=== PATIENT | female | born 1990 | race Caucasian/White ===

== ENCOUNTER 2016-12-12 21:16 | Emergency (ER) | payer OTHER ==
[2016-12-12] MEDS ORDERED: NS 1,000 ML IV ONE ×2 (22:29→23:26)
--- NOTE | 2016-12-12 22:29 | EDPHY ---
H & P Stated Complaint: herpes outbreak tues started pelvic pain discharge Time Seen by Provider: 12/12/16 22:17 HPI/ROS: CHIEF COMPLAINT: Abdominal pain, herpes genitalis outbreak HISTORY OF PRESENT ILLNESS: 25-year-old immunocompetent female complaining of 4 days of 1st herpes genitalis outbreak, diagnosis yesterday at [facility] started on tramadol monotherapy with no antiviral. She is continued complaints of herpes genitalis upright but is now complaining of left upper quadrant right lower quadrant abdominal pain. Positive subjective fever. Concerned about splenomegaly. Denies abdominal or splenic trauma. Bowel movements have been normal. No nausea or vomiting. No dyspnea. No chest pain. No back or flank pain. No sore throat REVIEW OF SYSTEMS: A ten point review of systems was performed and is negative with the exception of the items mentioned in the HPI PAST MEDICAL & SURGICAL HISTORY: Herpes genitalis. Bipolar disorder. Daily oral contraceptive use SOCIAL HISTORY: Nonsmoker. PHYSICAL EXAM (Prior to examination, patient consented to physical exam, hands were washed and my usual and customary physical exam procedures followed) 1) GENERAL: Well-developed, well-nourished, alert and oriented. Appears to be in no acute distress. 2) HEAD: Normocephalic, atraumatic 3) HEENT: Pupils equal, round, reactive to light bilaterally. Sclera anicteric. Nasopharynx, oropharynx, clear, no lesions. No tonsillar enlargement or exudate. Ears bilaterally with normal tympanic membranes. 4) NECK: Full range of motion, no meningeal signs. 5) LUNGS: Clear auscultation bilaterally, no wheezes, no rhonchi, no retractions. 6) HEART: Regular rate and rhythm, no murmur, no heave, no gallop. 7) ABDOMEN: Tender to palpation right lower quadrant. Tender to palpation left upper quadrant. No gross splenomegaly appreciated., 8) MUSCULOSKELETAL: Moving all extremities, no focal areas of tenderness, no obvious trauma. No peripheral edema or discoloration. 9) BACK: No CVA tenderness, no midline vertebral tenderness, no fluctuance, no step-off, no obvious trauma, no visual or palpable abnormality. 10) SKIN: No rash, no petechiae. 11) Psychiatric: Patient is oriented X 3, there is no agitation. DIFFERENTIAL DIAGNOSIS: In no particular order, including but not limited to biliary colic, cholecystitis, peptic ulcer disease, pancreatitis, acute appendicitis, and gastroenteritis. This is a partial list of diagnoses considered. These considerations are based on history, physical exam, past history and reassessment. - Personal History LMP (Females 10-55): 8-14 Days Ago Current Tetanus/Diphtheria Vaccine: Yes Current Tetanus Diphtheria and Acellular Pertussis (TDAP): Yes - Medical/Surgical History Hx Asthma: No Hx Chronic Respiratory Disease: No Hx Diabetes: No Hx Cardiac Disease: No Hx Renal Disease: No Hx Cirrhosis: No Hx Alcoholism: No Hx HIV/AIDS: No Hx Splenectomy or Spleen Trauma: No - Social History Smoking Status: Never smoked Constitutional: Initial Vital Signs Temperature (C) 37.9 C 12/12/16 21:32 Heart Rate 67 12/12/16 21:32 Respiratory Rate 18 12/12/16 21:32 Blood Pressure 111/66 12/12/16 21:32 O2 Sat (%) 96 12/12/16 21:32 O2 Delivery Mode Room Air Allergies/Adverse Reactions: amoxicillin Allergy (Verified 12/12/16 21:31) Home Medications: Medication Instructions Recorded [place] Carbonate [[place] 900 mg PO 12/12/16 Carbonate Tab 300 mg (*)] Cephalexin [Keflex] 500 mg PO QID 7 Days 12/13/16 Medical Decision Making - Diagnostics Imaging Results: Imaging Impressions Abdomen Ultrasound 12/12/16 22:27 Impression: 1. Normal sonographic appearance of the appendix. Results called to Jame Kolb PA-C, at 12:00 PM. Abdomen/Pelvis Ultrasound 12/12/16 22:27 Impression: Negative renal sonogram. Minimal fluid in Morison's pouch, likely physiologic. Results called to Jame Kolb PA-C, at 12:00 PM. ED Course/Re-evaluation: Patient re-evaluated with serial exams most recently at 12:12 a.m.. I discussed the case at this time with Dr. Abhilash Membreno. She is noted to have an elevated lipase of incompletely clear etiology. Notes that she only drinks 1 -2 drinks of alcohol per week. She has normal transaminase. She is febrile however. Plan will be CT imaging and re-evaluation. At this time she is sleeping resting comfortably. 1:04 a.m.: Re-evaluation. She is resting comfortably. Discussed her diagnostic results. Specific etiology of her elevated lipase is not completely clear at this time. However, her pain is controlled and she is tolerating oral intake with no nausea or vomiting. I have recommended non emergent follow up with Gastroenterology for this. I do not think that hospitalization is currently indicated at this time. She is also noted to have bacteriuria and pyuria. Urine is cultured and she is started on Keflex. Recommend she return to the emergency department immediately if she develops inability to tolerate oral intake or any other symptoms that concern her. She feels comfortable being discharged. All questions and concerns addressed by myself. - Data Points Laboratory Results: Laboratory Results 12/12/16 20:22 12/12/16 20:12/12/16 12/12/16 12/12/16 22:20 20:22 20:22 WBC 4.37 10^3/uL 10^3/uL (3.80-9.50) RBC 3.82 10^6/uL L 10^6/uL (4.18-5.33) Hgb 13.0 g/dL g/dL (12.6-16.3) Hct 38.3 % % (38.0-47.0) MCV 100.3 fL H fL (81.5-99.8) MCH 34.0 pg pg (27.9-34.1) MCHC 33.9 g/dL g/dL (32.4-36.7) RDW 12.3 % % (11.5-15.2) Plt Count 154 10^3/uL 10^3/uL (150-400) MPV 9.7 fL fL (8.7-11.7) Neut % (Auto) 62.7 % % (39.3-74.2) Lymph % (Auto) 27.2 % % (15.0-45.0) [place] % (Auto) 9.2 % % (4.5-13.0) Eos % (Auto) 0.2 % L % (0.6-7.6) Baso % (Auto) 0.5 % % (0.3-1.7) Nucleat RBC Rel Count 0.0 % % (0.0-0.2) Absolute Neuts (auto) 2.74 10^3/uL 10^3/uL (1.70-6.50) Absolute Lymphs (auto) 1.19 10^3/uL 10^3/uL (1.00-3.00) Absolute Monos (auto) 0.40 10^3/uL 10^3/uL (0.30-0.80) Absolute Eos (auto) 0.01 10^3/uL L 10^3/uL (0.03-0.40) Absolute Basos (auto) 0.02 10^3/uL 10^3/uL (0.02-0.10) Absolute Nucleated RBC 0.00 10^3/uL 10^3/uL (0-0.01) Immature Gran % 0.2 % % (0.0-1.1) Immature Gran # 0.01 10^3/uL 10^3/uL (0.00-0.10) Sodium Potassium Chloride Carbon Dioxide Anion Gap BUN Creatinine Estimated GFR Glucose Calcium Total Bilirubin Conjugated Bilirubin Unconjugated Bilirubin AST ALT Alkaline Phosphatase Total Protein Albumin Lipase Beta HCG, Qual NEGATIVE Urine Color PALE YELLOW Urine Appearance CLEAR Urine pH 7.0 (5.0-7.5) Ur Specific [place] 1.003 (1.002-1.030) Urine Protein NEGATIVE (NEGATIVE) Urine Ketones NEGATIVE (NEGATIVE) Urine Blood 3+ H (NEGATIVE) Urine Nitrate NEGATIVE (NEGATIVE) Urine Bilirubin NEGATIVE (NEGATIVE) Urine Urobilinogen NEGATIVE EU EU (0.2-1.0) Ur Leukocyte Esterase TRACE H (NEGATIVE) Urine RBC 1-3 /hpf /hpf (0-3) Urine WBC 5-10 /hpf H /hpf (0-3) Ur Epithelial Cells TRACE /lpf /lpf (NONE-1+) Urine Bacteria TRACE /hpf H /hpf (NONE SEEN) Urine Glucose NEGATIVE (NEGATIVE) 12/12/16 20:22 WBC RBC Hgb Hct MCV MCH MCHC RDW Plt Count MPV Neut % (Auto) Lymph % (Auto) [place] % (Auto) Eos % (Auto) Baso % (Auto) Nucleat RBC Rel Count Absolute Neuts (auto) Absolute Lymphs (auto) Absolute Monos (auto) Absolute Eos (auto) Absolute Basos (auto) Absolute Nucleated RBC Immature Gran % Immature Gran # Sodium 140 mEq/L mEq/L (134-144) Potassium 4.1 mEq/L mEq/L (3.5-5.2) Chloride 104 mEq/L mEq/L (97-110) Carbon Dioxide 25 mEq/l mEq/l (22-31) Anion Gap 11 mEq/L mEq/L (8-16) BUN 11 mg/dL mg/dL (7-23) Creatinine 0.9 mg/dL mg/dL (0.6-1.0) Estimated GFR > 60 Glucose 94 mg/dL mg/dL (70-100) Calcium 9.5 mg/dL mg/dL (8.5-10.4) Total Bilirubin 0.4 mg/dL mg/dL (0.1-1.4) Conjugated Bilirubin 0.1 mg/dL mg/dL (0.0-0.5) Unconjugated Bilirubin 0.3 mg/dL mg/dL (0.0-1.1) AST 42 IU/L IU/L (14-46) ALT 34 IU/L IU/L (9-52) Alkaline Phosphatase 38 IU/L IU/L (38-126) Total Protein 7.0 g/dL g/dL (6.3-8.2) Albumin 4.2 g/dL g/dL (3.5-5.0) Lipase 559.0 IU/L H IU/L (23-300) Beta HCG, Qual Urine Color Urine Appearance Urine pH Ur Specific [place] Urine Protein Urine Ketones Urine Blood Urine Nitrate Urine Bilirubin Urine Urobilinogen Ur Leukocyte Esterase Urine RBC Urine WBC Ur Epithelial Cells Urine Bacteria Urine Glucose Medications Given: Discontinued Medications Cephalexin (Keflex 500 Mg Prepack#4) 1 btl TAKEHOME EDNOW ONE PRN Reason: Protocol Stop: 12/13/16 01:03 Last Admin: 12/13/16 01:16 Dose: 1 btl Sodium Chloride (Ns) 1,000 mls @ 0 mls/hr IV ONCE ONE; Wide Open PRN Reason: Protocol Stop: 12/12/16 22:30 Last Admin: 12/12/16 22:33 Dose: 1,000 mls Sodium Chloride (Ns) 1,000 mls @ 0 mls/hr IV ONCE ONE PRN Reason: Wide Open Stop: 12/12/16 23:27 Last Admin: 12/12/16 23:29 Dose: 1,000 mls Departure - Departure Disposition: Home, Routine, Self-Care Clinical Impression: Elevated lipase Urinary tract infection Qualifiers: Urinary tract infection type: acute cystitis Hematuria presence: with hematuria Qualified Code(s): N30.01 - Acute cystitis with hematuria Condition: Good Instructions: Pancreatitis (ED), Urinary Tract Infection in Women (ED), How to Care for Your Suprapubic Catheter (ED) Additional Instructions: Return to the emergency department immediately if you develop new or worsening abdominal pain if you develop inability to tolerate oral intake such as food or fluid, if you developed worsening abdominal pain or any other symptoms that concern you. Referrals: Domenic Toledo MD [Medical Doctor] - 2-3 days, call for appt. (Dr. Domenic Toledo is a public affairs manager) Heaven Herzog MD [Medical Doctor] - 12/15/16 (Dr. Heaven Herzog is a primary care provider. Recommend you establish primary care.) Prescriptions: Cephalexin [Keflex] 500 mg PO QID 7 Days
[2016-12-12 22:35] LABS: % IMMATURE GRANULYOCYTES 0.2 % (0.0-1.1); ABSOLUTE IMMATURE GRANULOCYTES 0.01 10^3/uL (0.00-0.10); ADD DIFF? NO; ADD MORPH? NO; ADD SCAN? NO; ATYPICAL LYMPHOCYTE FLAG 90 (0-99); FRAGMENT RBC FLAG 0 (0-99); HEMATOCRIT 38.3 % (38.0-47.0); LEFT SHIFT FLG 0 (0-99); LIPEMIA HEMOLYSIS FLAG 90 (0-99); MEAN CELL HEMOGLOBIN CONCENTR. 33.9 g/dL (32.4-36.7); MEAN CELL VOLUME 100.3 fL (81.5-99.8); MEAN PLATELET VOLUME 9.7 fL (8.7-11.7); PLATELET CLUMPS FLAG 20 (0-99); PLATELET COUNT 154 10^3/uL (150-400); RED BLOOD CELL COUNT 3.82 10^6/uL (4.18-5.33); RED CELL DISTRIBUTION WIDTH 12.3 % (11.5-15.2)
[2016-12-12 22:42] LABS: COLOR PALE YELLOW; LEUKOCYTE ESTERASE,URINE TRACE (NEGATIVE); NITRITE,URINE NEGATIVE (NEGATIVE)
[2016-12-12 22:55] LABS: ALANINE AMINOTRANSFERASE 34 IU/L (9-52); ALBUMIN 4.2 g/dL (3.5-5.0); ALKALINE PHOSPHATASE 38 IU/L (38-126); ANION GAP 11 mEq/L (8-16); ASPARTATE AMINOTRANSFERASE 42 IU/L (14-46); BILIRUBIN,TOTAL 0.4 mg/dL (0.1-1.4); BILIRUBIN-CONJUGATED 0.1 mg/dL (0.0-0.5); BILIRUBIN-UNCONJUGATED 0.3 mg/dL (0.0-1.1); CALCIUM 9.5 mg/dL (8.5-10.4); CARBON DIOXIDE 25 mEq/l (22-31); CHLORIDE 104 mEq/L (97-110); CREATININE 0.9 mg/dL (0.6-1.0); GLOMERULAR FILTRATION RATE > 60; GLUCOSE 94 mg/dL (70-100); POTASSIUM 4.1 mEq/L (3.5-5.2); SODIUM 140 mEq/L (134-144)
[2016-12-12 22:59] LABS: BACTERIA TRACE /hpf (NONE SEEN)
[2016-12-12 23:30] VITALS: RESP 16
[2016-12-13] MEDS ORDERED: IOPAMIDOL (ISOVUE-300) 100 ML BTL ONE (00:16)
[2016-12-13] MEDS ORDERED: CEPHALEXIN 500MG PREPACK#4 BTL TAKEHOME ONE (01:02)
[2016-12-13 01:36] VITALS: BP 118/94; PULSE 75; TEMP 102.9; O2SAT 98
== END 2016-12-13 01:37 | disposition home or self-care (01) ==
DX: N30.01 Acute cystitis with hematuria (principal); R74.8 Abnormal levels of other serum enzymes; B96.89 Other specified bacterial agents as the cause of diseases classified elsewhere; E86.9 Volume depletion, unspecified
CPT/HCPCS: Q9967

== ENCOUNTER 2017-04-14 15:44 | Inpatient (IN) | payer OTHER ==
--- NOTE | 2017-04-14 15:40 | EDPHY ---
H & P Constitutional: Initial Vital Signs Temperature (C) 36.6 C 04/14/17 16:10 Heart Rate 67 04/14/17 16:10 Respiratory Rate 16 04/14/17 16:10 Blood Pressure 111/71 04/14/17 16:10 O2 Sat (%) 94 04/14/17 16:10 O2 Delivery Mode Room Air Allergies/Adverse Reactions: amoxicillin Allergy (Verified 04/14/17 16:09) Home Medications: Medication Instructions Recorded [place] Carbonate [[place] 900 mg PO 12/12/16 Carbonate Tab 300 mg (*)] Medical Decision Making ED Course/Re-evaluation: CHIEF COMPLAINT: Psychiatric evaluation, M1 HISTORY OF PRESENT ILLNESS: The patient is a 26 y/o female with a long history of severe depression and diagnosis of bipolar I a few years ago who arrives on an M1 hold for suicidal ideation. She has been working with her psychiatrist to determine the best medication therapy and has been on [place] for 5 months. She started feeling "low" 2 weeks ago and was not sure if the [place] was helping. She describes some auditory and visual hallucinations and difficulty sleeping. She felt "desperate to change something" and stopped her [place] 3 days ago without involvement of her doctor. Yesterday morning she had a "nervous breakdown" and developed worsening suicidal thoughts and had self-harm behaviors. She cut her right wrist and says it "grounds me in an odd way." She felt like she returned to a "calmer place" today, but her psychiatrist was out- of-town to discuss everything with so she went [facility], which then sent her here on an M1 for suicidal ideation. She admits to these thoughts, but says they feel less intense today and she denies any type of plan. REVIEW OF SYSTEMS: A 10 point review of systems was performed and is negative with the exception of the elements mentioned in the history of present illness. PHYSICAL EXAM: General Appearance: Alert, well hydrated, appropriate, and non-toxic appearing. Head: Atraumatic without scalp tenderness or obvious injury Eyes: Pupils equal, round, reactive to light and accommodation, EOMI, no trauma , no injection. Nose: Atraumatic, no rhinorrhea, clear. Throat: Mucus membranes moist. Neck: Supple Respiratory: No retractions, no distress, no wheezes, and no accessory muscle use. Lungs are clear to auscultation bilaterally. Cardiovascular: Regular rate and rhythm, no murmurs, rubs, or gallops. Good capillary refill all extremities. Gastrointestinal: Abdomen is soft, nontender, non-distended, no masses, no rebound, no guarding, no peritoneal signs. Musculoskeletal: Normal active ROM of all extremities, atraumatic. Neurological: Alert, appropriate, and interactive. The patient has non-focal cranial nerves, motor, sensory, and cerebellar exam. Skin: No rashes, good turgor, no nodules on palpation. Superficial laceration right wrist. Past medical history: Severe depression, bipolar I Past surgical history: Noncontributory Family history: Noncontributory Social history: Boyfriend at bedside. Lives in [place]. DIFFERENTIAL DIAGNOSIS: The differential diagnosis for the patient's depression included but was not limited to functional and major depression, situational depression, medication side effect, drugs, and alcohol abuse. MEDICAL DECISION MAKING: Patient is in no acute distress and is hemodynamically stable. We are awaiting psychiatric team's evaluation. Patient has known history of psychiatric disorders and is here for evaluation. - Data Points Laboratory Results: Laboratory Results 04/14/17 16:00 04/14/17 16:00 04/14/17 04/14/17 04/14/17 16:00 16:00 16:00 WBC RBC Hgb Hct MCV MCH MCHC RDW Plt Count MPV Neut % (Auto) Lymph % (Auto) [place] % (Auto) Eos % (Auto) Baso % (Auto) Nucleat RBC Rel Count Absolute Neuts (auto) Absolute Lymphs (auto) Absolute Monos (auto) Absolute Eos (auto) Absolute Basos (auto) Absolute Nucleated RBC Immature Gran % Immature Gran # Sodium Potassium Chloride Carbon Dioxide Anion Gap BUN Creatinine Estimated GFR Glucose Calcium Beta HCG, Qual NEGATIVE Salicylates Urine Opiates Screen NEGATIVE (NEGATIVE) Acetaminophen Urine Barbiturates NEGATIVE (NEGATIVE) Ur Phencyclidine Scrn NEGATIVE (NEGATIVE) Ur Amphetamine Screen NEGATIVE (NEGATIVE) U Benzodiazepines Scrn NEGATIVE (NEGATIVE) [place] 0.2 mEq/L L mEq/L (0.6-1.2) Urine Cocaine Screen NEGATIVE (NEGATIVE) U Marijuana (THC) Screen NEGATIVE (NEGATIVE) Ethyl Alcohol 04/14/17 04/14/17 16:00 16:00 WBC 6.28 10^3/uL 10^3/uL (3.80-9.50) RBC 4.53 10^6/uL 10^6/uL (4.18-5.33) Hgb 15.5 g/dL g/dL (12.6-16.3) Hct 43.6 % % (38.0-47.0) MCV 96.2 fL fL (81.5-99.8) MCH 34.2 pg H pg (27.9-34.1) MCHC 35.6 g/dL g/dL (32.4-36.7) RDW 11.9 % % (11.5-15.2) Plt Count 201 10^3/uL 10^3/uL (150-400) MPV 9.4 fL fL (8.7-11.7) Neut % (Auto) 54.2 % % (39.3-74.2) Lymph % (Auto) 37.4 % % (15.0-45.0) [place] % (Auto) 5.7 % % (4.5-13.0) Eos % (Auto) 1.9 % % (0.6-7.6) Baso % (Auto) 0.6 % % (0.3-1.7) Nucleat RBC Rel Count 0.0 % % (0.0-0.2) Absolute Neuts (auto) 3.40 10^3/uL 10^3/uL (1.70-6.50) Absolute Lymphs (auto) 2.35 10^3/uL 10^3/uL (1.00-3.00) Absolute Monos (auto) 0.36 10^3/uL 10^3/uL (0.30-0.80) Absolute Eos (auto) 0.12 10^3/uL 10^3/uL (0.03-0.40) Absolute Basos (auto) 0.04 10^3/uL 10^3/uL (0.02-0.10) Absolute Nucleated RBC 0.00 10^3/uL 10^3/uL (0-0.01) Immature Gran % 0.2 % % (0.0-1.1) Immature Gran # 0.01 10^3/uL 10^3/uL (0.00-0.10) Sodium 141 mEq/L mEq/L (134-144) Potassium 3.9 mEq/L mEq/L (3.5-5.2) Chloride 103 mEq/L mEq/L (97-110) Carbon Dioxide 25 mEq/l mEq/l (22-31) Anion Gap 13 mEq/L mEq/L (8-16) BUN 15 mg/dL mg/dL (7-23) Creatinine 0.7 mg/dL mg/dL (0.6-1.0) Estimated GFR > 60 Glucose 83 mg/dL mg/dL (70-100) Calcium 10.1 mg/dL mg/dL (8.5-10.4) Beta HCG, Qual Salicylates < 1.0 mg/dL L mg/dL (2.0-20.0) Urine Opiates Screen Acetaminophen < 10 mcg/mL L mcg/mL (10-30) Urine Barbiturates Ur Phencyclidine Scrn Ur Amphetamine Screen U Benzodiazepines Scrn [place] Urine Cocaine Screen U Marijuana (THC) Screen Ethyl Alcohol < 10 mg/dL mg/dL (0-10) Departure - Departure Referrals: Patient,NotPresent [Unknown] - As per Instructions Report Scribed for: Jose Saenz Report Scribed by: Moraima David Date of Report: 04/14/17 Time of Report: 17:59
[2017-04-14 16:19] LABS: % IMMATURE GRANULYOCYTES 0.2 % (0.0-1.1); ABSOLUTE IMMATURE GRANULOCYTES 0.01 10^3/uL (0.00-0.10); ADD DIFF? NO; ADD MORPH? NO; ADD SCAN? NO; ATYPICAL LYMPHOCYTE FLAG 0 (0-99); FRAGMENT RBC FLAG 0 (0-99); HEMATOCRIT 43.6 % (38.0-47.0); HEMOGLOBIN 15.5 g/dL (12.6-16.3); LEFT SHIFT FLG 0 (0-99); LIPEMIA HEMOLYSIS FLAG 90 (0-99); MEAN CELL HEMOGLOBIN 34.2 pg (27.9-34.1); MEAN CELL HEMOGLOBIN CONCENTR. 35.6 g/dL (32.4-36.7); MEAN CELL VOLUME 96.2 fL (81.5-99.8); MEAN PLATELET VOLUME 9.4 fL (8.7-11.7); PLATELET CLUMPS FLAG 0 (0-99); PLATELET COUNT 201 10^3/uL (150-400); RED BLOOD CELL COUNT 4.53 10^6/uL (4.18-5.33); RED CELL DISTRIBUTION WIDTH 11.9 % (11.5-15.2)
[2017-04-14 16:26] LABS: ANION GAP 13 mEq/L (8-16); CALCIUM 10.1 mg/dL (8.5-10.4); CARBON DIOXIDE 25 mEq/l (22-31); CHLORIDE 103 mEq/L (97-110); CREATININE 0.7 mg/dL (0.6-1.0); ETHANOL SERUM < 10 mg/dL (0-10); GLOMERULAR FILTRATION RATE > 60; GLUCOSE 83 mg/dL (70-100); POTASSIUM 3.9 mEq/L (3.5-5.2); SALICYLATE < 1.0 mg/dL (2.0-20.0); SODIUM 141 mEq/L (134-144)
[2017-04-14 16:33] LABS: LITHIUM 0.2 mEq/L (0.6-1.2)
[2017-04-14] MEDS ORDERED: LITHIUM CARBONATE ER 450 MG TAB PO SCH (21:00)
[2017-04-14] MEDS ORDERED: MAG HYDROX/AL HYDROX/SIMETH 30 ML UDCUP PO PRN (22:33)
[2017-04-14] MEDS ORDERED: LORazepam 0.5 MG TAB PO PRN (22:33)
[2017-04-14] MEDS ORDERED: ACETAMINOPHEN 325 MG TAB PO PRN (22:33)
[2017-04-14] MEDS ORDERED: MAGNESIUM HYDROXIDE 30 ML UDCUP PO PRN (22:33)
[2017-04-14] MEDS ORDERED: OLANZapine 5 MG TAB PO PRN ×2 (22:41→23:00)
[2017-04-14 23:00] VITALS: BP 107/68
[2017-04-15 06:43] VITALS: PULSE 64; RESP 14; TEMP 98.1; O2SAT 92
[2017-04-15] MEDS ORDERED: LITHIUM CARBONATE ER 450 MG TAB PO SCH (09:00)
[2017-04-15] MEDS ORDERED: OLANZapine 5 MG TAB PO PRN (11:28)
[2017-04-15] MEDS ORDERED: hydrOXYzine HCL 25 MG TAB PO PRN (11:52)
--- NOTE | 2017-04-15 13:50 | BCON ---
[f rep st] BEHAVIORAL HEALTH CONSULTATION DATE OF CONSULTATION: 04/15/2017 REFERRING PHYSICIAN: Dr. Johnson REASON FOR REFERRAL: Medical clearance for inpatient behavioral health stay. HISTORY OF PRESENT ILLNESS: This patient was brought to the [facility] emergency department with suicidal ideation. She had been treated with lithium, but felt it was not working, so discontinued it 3 days ago. She had worsening suicidal thoughts and self-harm behaviors. She was evaluated by the mental health team and admitted for further psychiatric care. Currently, she is without any acute complaints. PAST MEDICAL HISTORY: 1. Bipolar disorder. 2. Anterior cruciate ligament tear. PAST SURGICAL HISTORY: She has had ACL repair and she has had a tonsillectomy. MEDICATIONS: She was only taking lithium. ALLERGIES: Listed to amoxicillin. SOCIAL HISTORY: She is . She has a live-in boyfriend. 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 She is nonsmoker and nondrinker. FAMILY HISTORY: Noncontributory. REVIEW OF SYSTEMS: A 10-point review of systems was conducted and was negative. PHYSICAL EXAM: VITALS: Blood pressure is 107/68, heart rate is 64, respiratory rate is 14, oxygen saturation is 92% on room air. Temperature is 36.7 degrees centigrade. Her weight is 54 kg for a body mass index of 19.2. GENERAL: This is a well-nourished, well-developed woman, appears her chronologic age, cooperative and in no acute distress. HEENT: Extraocular movements are intact. Pupils are equal, round, reactive to light. Mucous membranes are moist. Dentition is in good condition. She has an uncrowded airway, Mallampati class 1. NECK: Supple. HEART: There is a regular rate and rhythm with no murmurs, rubs, or gallops. LUNGS: Clear to auscultation bilaterally. ABDOMEN: Benign. EXTREMITIES: There is no cyanosis, clubbing, or edema. NEUROLOGIC: She is alert and oriented x3. Cranial nerves 2 through 12 are grossly intact. There is no focal weakness. Sensation is intact to light touch and gait is within normal limits. LABORATORY STUDIES: Drawn in the emergency department. CBC was overall within normal limits. She had a slightly high mean cellular hemoglobin of no clinical significance. Renal function and electrolytes were within normal limits. TSH was normal at 2.38. Beta hCG was negative for . Toxicology screen in the serum was negative for salicylates, acetaminophen or ethyl alcohol. [place] level was undetectable. Toxicology screen in the urine was negative for any substances of abuse. ASSESSMENT/RECOMMENDATIONS: 1. Mental health issues pending further evaluation and management per Psychiatry and the mental health team. 2. Normal exam. I see no medical contraindications to this patient's continued stay on the inpatient behavioral health unit or to any psychiatric medications or procedures. Thank you very much for including me in the care of this patient and please do not hesitate to contact me or the hospitalist service should there be need for further medical evaluation. /[id number]/MODL MTDD
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
[2017-04-15] MEDS ORDERED: hydrOXYzine HCL 25 MG TAB PO SCH (21:00)
== END 2017-04-15 13:13 | disposition home or self-care (01) | DRG 885 ==
LOC: EDUNIT# → BBEH 22:15
PROVIDERS: ADMIT Psychiatry & Neurology Behavioral Neurology & Neuropsychiatry; ATTEND Psychiatry & Neurology Behavioral Neurology & Neuropsychiatry
DX: F31.30 Bipolar disorder, current episode depressed, mild or moderate severity, unspecified (principal); F60.3 Borderline personality disorder; F43.10 Post-traumatic stress disorder, unspecified
CPT/HCPCS: 80305; G0480

== ENCOUNTER 2017-10-28 17:03 | Emergency (ER) | payer OTHER ==
[2017-10-28] MEDS ORDERED: NS 1,000 ML IV ONE (17:05)
[2017-10-28] MEDS ORDERED: ONDANSETRON 4 MG/2 ML VIAL IVP ONE (17:23)
[2017-10-28] MEDS ORDERED: KETOROLAC 30 MG/1 ML SDV IVP ONE (17:23)
[2017-10-28] MEDS ORDERED: FAMOTIDINE 20 MG/NACL 50 ML IV ONE (17:23)
--- NOTE | 2017-10-28 17:30 | EDPHY ---
H & P Time Seen by Provider: 10/28/17 17:04 HPI/ROS: HPI Abdominal pain. 26-year-old female by private vehicle. The patient was seen at an urgent care for abdominal pain and sent here for evaluation. She reports that at approximately 3:30 p.m. She developed which she describes as sharp crampy pain mostly in her upper abdomen. She reports that she then had some in her lower abdomen. She says that the pain would come on in waves. She has had nausea but no vomiting. Denies any vaginal bleeding or vaginal discharge. Last menstruation was 1.5 months ago. No urinary complaints. No diarrhea. Denies bloody or melenic stool. Normal bowel movement this morning. No prior abdominal surgical history. No change in diet or foreign travel. No other complaints. She is feeling better at this time. ROS: Constitutional: No fever, no chills. No weakness. Eyes: No discharge. No changes in vision. ENT: No sore throat. No nasal congestion or rhinorrhea. Respiratory: No cough. No shortness of breath. Cardiac: No chest pain, no palpitations. Gastrointestinal: As above, no vomiting, no diarrhea. Genitourinary: No hematuria. No dysuria or increased frequency with urination. Musculoskeletal: No back pain. No neck pain. No myalgias or arthralgias. Skin: No rashes. Neurological: No headache. No focal weakness or altered sensation. Past medical history: Depression, tonsillectomy. Social history: No alcohol. Nonsmoker. Here by herself. Physical Exam: General Appearance: Alert, no distress. This patient is responding to questions appropriately and in full sentences. This patient appears well- hydrated and well-nourished. Eyes: Pupils equal and round no pallor or injection. No lid edema, erythema or injection. Respiratory: There are no retractions, lungs are clear to auscultation with good air movement bilaterally. Cardiovascular: Regular rate and rhythm. No murmur. Gastrointestinal: Abdomen is soft with mild epigastric and vague upper abdominal tenderness on palpation, no masses, bowel sounds normal. No focal tenderness at McBurney's point. No Stallings sign. Neurological: Motor sensory function is grossly intact. Cranial nerves are normal. Gait is normal. Skin: Warm and dry, no rashes. Musculoskeletal: Neck is supple and nontender. Extremities are symmetrical. All joints range without pain or impingement. Psychiatric: No agitation. No depression. Database: EKG: Imaging: Right upper quadrant ultrasound: Negative. Results were discussed with staff radiologist Dr. Julio C Kunz. Abdominal limited ultrasound eval for appendicitis: Negative. Appendix is well visualized and is normal. Results were discussed with staff radiologist Dr. Julio C Kunz. Procedures: Emergency department course: IV was placed. Vital signs reviewed and are normal. She was started on IV normal saline with 500 cc to 1 L to be given over the next hour. Right upper quadrant ultrasound will be obtained to evaluate for gallbladder pathology. Standard blood work urinalysis to be obtained. Patient has no contraindications to NSAIDs. Specifically no history of renal dysfunction or peptic ulcer disease. She will be given 30 mg of IV Toradol, 4 mg of IV Zofran and 20 mg of IV Pepcid initially. 7:30 p.m., patient re-evaluated. She is much more comfortable at this time. Denies any significant pain. Repeat abdominal exam she is soft, nontender nondistended. I discussed the results of her emergency department workup. I discussed her the elevation of her lipase and diagnosis of pancreatitis. 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 At this time she is tolerating oral fluids. She does feel comfortable going home and I feel she is safe for discharge. I instructed her not to drink any alcohol. She will follow up with her primary care physician for re-evaluation in 1-2 days. Return to emergency department precautions were thoroughly reviewed with her. All of her questions were answered. She was discharged from the emergency department in good condition. Differential Diagnosis: The differential diagnosis on this patient includes but is not limited to pancreatitis, gastritis, menstrual cramps. Bowel obstruction/volvulus, appendicitis, cholecystitis, unlikely. This represents a partial list of diagnoses considered. These considerations are based on history, physical exam , past history, reassessment and diagnostic testing. Smoking Status: Never smoked Constitutional: Initial Vital Signs Temperature (C) 36.7 C 10/28/17 17:07 Heart Rate 52 L 10/28/17 17:07 Respiratory Rate 17 10/28/17 17:07 Blood Pressure 98/72 L 10/28/17 17:07 O2 Sat (%) 98 10/28/17 17:07 O2 Delivery Mode Room Air Allergies/Adverse Reactions: amoxicillin Allergy (Verified 10/28/17 17:04) Home Medications: Medication Instructions Recorded Ondansetron Odt [Zofran Odt 4 mg 4 mg PO Q4PRN PRN #10 tab 10/28/17 (*)] Medical Decision Making - Diagnostics Imaging Results: Imaging Impressions Abdomen Ultrasound 10/28/17 17:24 Impression: Negative limited right lower quadrant ultrasound, specifically, there are no secondary findings to support a clinical diagnosis of acute appendicitis. Results called and discussed with Rosanna Madison MD on 10/28/2017 at 18: 15 . Abdomen Ultrasound 10/28/17 18:15 Impression: Negative right upper quadrant ultrasound with no findings to suggest acute cholecystitis.. Results called and discussed with Rosanna Madison MD on 10/28/2017 at 19: 30 . - Data Points Laboratory Results: Laboratory Results 10/28/17 17:22 10/28/17 17:22 10/28/17 10/28/17 10/28/17 17:22 17:22 17:22 WBC 4.11 10^3/uL 10^3/uL (3.80-9.50) RBC 4.14 10^6/uL L 10^6/uL (4.18-5.33) Hgb 13.9 g/dL g/dL (12.6-16.3) Hct 40.7 % % (38.0-47.0) MCV 98.3 fL fL (81.5-99.8) MCH 33.6 pg pg (27.9-34.1) MCHC 34.2 g/dL g/dL (32.4-36.7) RDW 12.1 % % (11.5-15.2) Plt Count 193 10^3/uL 10^3/uL (150-400) MPV 9.9 fL fL (8.7-11.7) Neut % (Auto) 41.2 % % (39.3-74.2) Lymph % (Auto) 49.6 % H % (15.0-45.0) [place] % (Auto) 6.3 % % (4.5-13.0) Eos % (Auto) 2.2 % % (0.6-7.6) Baso % (Auto) 0.7 % % (0.3-1.7) Nucleat RBC Rel Count 0.0 % % (0.0-0.2) Absolute Neuts (auto) 1.69 10^3/uL L 10^3/uL (1.70-6.50) Absolute Lymphs (auto) 2.04 10^3/uL 10^3/uL (1.00-3.00) Absolute Monos (auto) 0.26 10^3/uL L 10^3/uL (0.30-0.80) Absolute Eos (auto) 0.09 10^3/uL 10^3/uL (0.03-0.40) Absolute Basos (auto) 0.03 10^3/uL 10^3/uL (0.02-0.10) Absolute Nucleated RBC 0.00 10^3/uL 10^3/uL (0-0.01) Immature Gran % 0.0 % % (0.0-1.1) Immature Gran # 0.00 10^3/uL 10^3/uL (0.00-0.10) Sodium 142 mEq/L mEq/L (135-145) Potassium 3.8 mEq/L mEq/L (3.3-5.0) Chloride 103 mEq/L mEq/L (97-110) Carbon Dioxide 26 mEq/l mEq/l (22-31) Anion Gap 13 mEq/L mEq/L (8-16) BUN 12 mg/dL mg/dL (7-23) Creatinine 0.7 mg/dL mg/dL (0.6-1.0) Estimated GFR > 60 Glucose 73 mg/dL mg/dL (70-100) Calcium 9.8 mg/dL mg/dL (8.5-10.4) Total Bilirubin 0.6 mg/dL mg/dL (0.1-1.4) Conjugated Bilirubin 0.3 mg/dL mg/dL (0.0-0.5) Unconjugated Bilirubin 0.3 mg/dL mg/dL (0.0-1.1) AST 32 IU/L IU/L (14-46) ALT 45 IU/L IU/L (9-52) Alkaline Phosphatase 47 IU/L IU/L (38-126) Total Protein 7.3 g/dL g/dL (6.3-8.2) Albumin 4.7 g/dL g/dL (3.5-5.0) Lipase 400 IU/L H IU/L (23-300) Beta HCG, Qual NEGATIVE Urine Color Urine Appearance Urine pH Ur Specific [place] Urine Protein Urine Ketones Urine Blood Urine Nitrate Urine Bilirubin Urine Urobilinogen Ur Leukocyte Esterase Urine RBC Urine WBC Ur Epithelial Cells Urine Glucose 10/28/17 17:14 WBC RBC Hgb Hct MCV MCH MCHC RDW Plt Count MPV Neut % (Auto) Lymph % (Auto) [place] % (Auto) Eos % (Auto) Baso % (Auto) Nucleat RBC Rel Count Absolute Neuts (auto) Absolute Lymphs (auto) Absolute Monos (auto) Absolute Eos (auto) Absolute Basos (auto) Absolute Nucleated RBC Immature Gran % Immature Gran # Sodium Potassium Chloride Carbon Dioxide Anion Gap BUN Creatinine Estimated GFR Glucose Calcium Total Bilirubin Conjugated Bilirubin Unconjugated Bilirubin AST ALT Alkaline Phosphatase Total Protein Albumin Lipase Beta HCG, Qual Urine Color YELLOW Urine Appearance CLEAR Urine pH 7.0 (5.0-7.5) Ur Specific [place] 1.009 (1.002-1.030) Urine Protein NEGATIVE (NEGATIVE) Urine Ketones NEGATIVE (NEGATIVE) Urine Blood NEGATIVE (NEGATIVE) Urine Nitrate NEGATIVE (NEGATIVE) Urine Bilirubin NEGATIVE (NEGATIVE) Urine Urobilinogen NEGATIVE EU EU (0.2-1.0) Ur Leukocyte Esterase NEGATIVE (NEGATIVE) Urine RBC 1-3 /hpf /hpf (0-3) Urine WBC 1-3 /hpf /hpf (0-3) Ur Epithelial Cells NONE SEEN /lpf /lpf (NONE-1+) Urine Glucose NEGATIVE (NEGATIVE) Medications Given: Discontinued Medications Sodium Chloride (Ns) 1,000 mls @ 0 mls/hr IV EDNOW ONE; Wide Open PRN Reason: Protocol Stop: 10/28/17 17:06 Last Admin: 10/28/17 17:27 Dose: 1,000 mls Famotidine/Sodium Chloride (Pepcid 20 Mg (Premix)) 50 mls @ 200 mls/hr IV EDNOW ONE Stop: 10/28/17 17:37 Last Admin: 10/28/17 17:28 Dose: 50 mls Ketorolac Tromethamine (Toradol) 30 mg IVP EDNOW ONE Stop: 10/28/17 17:24 Last Admin: 10/28/17 17:28 Dose: 30 mg Ondansetron HCl (Zofran) 4 mg IVP EDNOW ONE Stop: 10/28/17 17:24 Last Admin: 10/28/17 17:28 Dose: 4 mg Departure - Departure Disposition: Home, Routine, Self-Care Clinical Impression: Pancreatitis Condition: Good Instructions: Pancreatitis (ED) Additional Instructions: Read and follow provided instructions. Follow-up with your primary care physician in 1-2 days for re-evaluation. You need to have you're lipase rechecked at that time. Do not drink alcohol. Avoid caffeine. Avoid fatty and spicy foods. Take medication as prescribed for nausea. Return to the emergency department for worsening abdominal pain, vomiting, blood in her stool or other serious concerns. Referrals: NONE *PRIMARY CARE P,. [Primary Care Provider] - As per Instructions Prescriptions: Ondansetron Odt [Zofran Odt 4 mg (*)] 4 mg PO Q4PRN PRN #10 tab PRN Reason: For Nausea & Vomiting
[2017-10-28 17:34] LABS: PLATELET COUNT 193 10^3/uL (150-400)
[2017-10-28 19:50] VITALS: BP 99/62
== END 2017-10-28 19:49 | disposition home or self-care (01) ==
DX: K85.90 Acute pancreatitis without necrosis or infection, unspecified (principal); E86.9 Volume depletion, unspecified
CPT/HCPCS: 96365; J1885; J2405